=== PATIENT | male | born 1940 | race Caucasian/White ===

== ENCOUNTER 2021-08-09 04:26 | Inpatient (IN) | payer OTHER, BC ==
[2021-08-06 08:54] VITALS: BMI 31.8
[2021-08-09] MEDS ORDERED: BUPIVACAINE HCL/PF 0.25% (2.5MG/ML) 10 ML VIAL ONE (07:14)
[2021-08-09] MEDS ORDERED: HEPARIN NA (PORCINE) 5,000 UNITS/ML 1ML VIAL ONE (07:14)
[2021-08-09] MEDS ORDERED: BUPIVACAINE LIPOSOME/PF (EXPAREL) 266 MG/20 ML VIAL ONE ×2 (07:14→09:56)
[2021-08-09] MEDS ORDERED: THROMBIN (BOVINE) 5,000 UNIT VIAL TP ONE ×5 (07:14→15:06)
[2021-08-09] MEDS ORDERED: GENTAMICIN SO4 80 MG/2 ML VIAL ONE (07:42)
[2021-08-09] MEDS ORDERED: MIDAZOLAM HCL 2 MG/2 ML SINGLE DOSE VIAL ONE (08:08)
[2021-08-09] MEDS ORDERED: fentaNYL CITRATE 250 MCG/5 ML VIAL ONE (08:08)
[2021-08-09] MEDS ORDERED: ROCURONIUM BROMIDE 50 MG/5 ML SYRINGE ONE ×3 (08:08→12:15)
[2021-08-09] MEDS ORDERED: PROPOFOL 20 ML ONE ×2 (08:08)
[2021-08-09] MEDS ORDERED: GENTAMICIN SO4 80 MG/2 ML VIAL IVPB ONE ×2 (08:18→09:40)
[2021-08-09] MEDS ORDERED: HYDROGEN PEROXIDE 473 ML PO ONE ×2 (08:19→10:00)
[2021-08-09] MEDS ORDERED: ceFAZolin 2 GRAM PREMIX BAG IVPB ONE (09:00)
[2021-08-09] MEDS ORDERED: VANCOMYCIN 1 GM in D5W (PRE-DOCKED) 1,000 MG/250 ML IVPB ONE (09:10)
[2021-08-09] MEDS ORDERED: BUPIVACAINE HCL/PF 0.5% (5MG/ML) 10 ML VIAL ONE (09:57)
[2021-08-09] MEDS ORDERED: TRANEXAMIC ACID 1000 MG/10 ML VIAL ONE (11:17)
[2021-08-09] MEDS ORDERED: ceFAZolin SODIUM 1 GM VIAL ONE ×2 (11:17→13:06)
[2021-08-09] MEDS ORDERED: LIDOCAINE HCL 2% JELLY (5 ML/TUBE) ONE (11:17)
[2021-08-09] MEDS ORDERED: DEXAMETHASONE SOD PHOSPHATE 4 MG/1 ML VIAL ONE (11:17)
[2021-08-09] MEDS ORDERED: VANCOMYCIN 1,000 MG VIAL (RESTRICTED TO ID ONLY) ONE (11:17)
[2021-08-09] MEDS ORDERED: LIDOCAINE HCL/PF 2% SDV 5ML VIAL ONE (11:17)
[2021-08-09] MEDS ORDERED: DESFLURANE GAS 240 ML BOTTLE IH ONE (12:55)
[2021-08-09] MEDS ORDERED: oxyCODONE HCL 5 MG TABLET PO PRN (13:03)
[2021-08-09] MEDS ORDERED: HYDROmorphone HCl 2 MG/ML VIAL SQ PRN (13:03)
[2021-08-09] MEDS ORDERED: ONDANSETRON 4 MG/2 ML VIAL IVPUSH PRN ×2 (13:03→14:42)
[2021-08-09] MEDS ORDERED: diazePAM CARPU-JECT 10 MG/2 ML DISP.SYRIN IVPUSH PRN (13:03)
[2021-08-09] MEDS ORDERED: BUPIVACAINE HCL/PF 0.5% (5MG/ML) 10 ML VIAL IJ ONE (14:12)
[2021-08-09] MEDS ORDERED: BUPIVACAINE LIPOSOME/PF (EXPAREL) 266 MG/20 ML VIAL NR ONE (14:12)
[2021-08-09] MEDS ORDERED: LACTATED RINGERS SOLUTION 1,000 ML IV SCH (14:45)
[2021-08-09] MEDS ORDERED: ACETAMINOPHEN INJECTION 100 ML IVPB ONE (15:00)
[2021-08-09] MEDS: LACTATED RINGERS SOLUTION 1,000 ML IV SCH (16:24)
[2021-08-09] MEDS ORDERED: metFORMIN HCL 500 MG TABLET (FP) PO SCH (16:30)
[2021-08-09] MEDS: oxyCODONE HCL 5 MG TABLET PO PRN ×2 (18:57→22:53)
[2021-08-09] MEDS: CEFAZOLIN 2 GM in DEXTROSE 5%-WATER - 100 ML IVPB SCH (19:30)
[2021-08-09] MEDS: ATORVASTATIN CA 20 MG TABLET (FP) PO SCH (21:11)
[2021-08-09] MEDS: INSULIN SLIDING SCALE (NOVOLOG) 1 VIAL SQ SCH (21:15)
[2021-08-10] MEDS: CEFAZOLIN 2 GM in DEXTROSE 5%-WATER - 100 ML IVPB SCH ×2 (00:44→10:23)
[2021-08-10] MEDS: ACETAMINOPHEN 1000 MG/100 ML VIAL IVPB PRN ×2 (00:44→20:48)
[2021-08-10] MEDS: oxyCODONE HCL 5 MG TABLET PO PRN (05:50)
[2021-08-10] MEDS: INSULIN SLIDING SCALE (NOVOLOG) 1 VIAL SQ SCH ×4 (06:06→21:35)
[2021-08-10 09:56] LABS: HEMATOCRIT 27.3 % (35.4-49); HEMOGLOBIN 9.3 GM/dL (11.7-16.9); MCH 29.5 pg (25.7-33.7); MCHC 33.9 g/dl (32.0-35.9); MEAN CELL VOLUME 86.8 fl (80-96); PLATELET COUNT 123 10^3/uL (134-434); RBC 3.15 M/mm3 (4.00-5.60); RDW 15.2 % (11.9-15.9); WHITE BLOOD COUNT 10.9 K/mm3 (4.0-10.0)
[2021-08-10] MEDS ORDERED: KETOROLAC TROMETHAMINE 30 MG/1 ML VIAL IVPUSH ONE (10:00)
[2021-08-10] MEDS: VALSARTAN 160 MG TABLET PO SCH (10:23)
[2021-08-10] MEDS: amLODIPine BESYLATE 10 MG TABLET (FP) PO SCH (10:24)
[2021-08-10 11:07] LABS: BLOOD UREA NITROGEN 29.2 mg/dL (7-18)
[2021-08-10 11:11] LABS: CREATININE 1.5 mg/dL (0.55-1.3)
[2021-08-10] MEDS: HYDROmorphone *PCA* 10MG/50ML DISP.SYRIN PCA SCH (15:50)
[2021-08-10] MEDS: LACTATED RINGERS SOLUTION 1,000 ML IV SCH (15:51)
[2021-08-11] MEDS: LACTATED RINGERS SOLUTION 1,000 ML IV SCH (03:46)
[2021-08-11] MEDS: ACETAMINOPHEN 1000 MG/100 ML VIAL IVPB PRN (05:15)
[2021-08-11] MEDS: INSULIN SLIDING SCALE (NOVOLOG) 1 VIAL SQ SCH ×4 (06:03→22:06)
[2021-08-11 08:43] LABS: HEMATOCRIT 27.1 % (35.4-49); MCH 28.9 pg (25.7-33.7); MCHC 33.3 g/dl (32.0-35.9); MEAN CELL VOLUME 86.9 fl (80-96); MEAN PLT VOLUME 10.1 fl (7.5-11.1); PLATELET COUNT 111 10^3/uL (134-434); RBC 3.11 M/mm3 (4.00-5.60); RDW 15.5 % (11.9-15.9); WHITE BLOOD COUNT 10.2 K/mm3 (4.0-10.0)
[2021-08-11 09:22] LABS: ALBUMIN 2.5 g/dl (3.4-5.0); BLOOD UREA NITROGEN 18.9 mg/dL (7-18); CALCIUM 8.1 mg/dL (8.5-10.1); MAGNESIUM 2.2 mg/dL (1.8-2.4)
[2021-08-11 09:23] LABS: CREATININE 1.1 mg/dL (0.55-1.3)
[2021-08-11 09:24] LABS: PHOSPHOROUS 2.4 mg/dL (2.5-4.9)
[2021-08-11 09:25] LABS: BILIRUBIN,TOTAL 0.7 mg/dL (0.2-1); TOT PROT 5.3 g/dl (6.4-8.2)
[2021-08-11] MEDS ORDERED: TRIAMTERENE AND HCTZ - 37.5 MG/25 MG CAPSULE PO SCH (10:00)
[2021-08-11] MEDS: VALSARTAN 160 MG TABLET PO SCH (10:12)
[2021-08-11] MEDS: amLODIPine BESYLATE 10 MG TABLET (FP) PO SCH (10:12)
[2021-08-11] MEDS ORDERED: ACETAMINOPHEN 325 MG TABLET (FP) PO PRN (14:14)
[2021-08-11] MEDS: ATORVASTATIN CA 20 MG TABLET (FP) PO SCH (22:08)
[2021-08-12] MEDS ORDERED: DOCUSATE SODIUM 100 MG CAPSULE (FP) PO ONE ×3 (02:58→06:45)
[2021-08-12] MEDS: LACTATED RINGERS SOLUTION 1,000 ML IV SCH ×3 (04:49→21:34)
[2021-08-12] MEDS: INSULIN SLIDING SCALE (NOVOLOG) 1 VIAL SQ SCH ×4 (06:41→21:36)
[2021-08-12 08:23] LABS: HEMOGLOBIN 9.1 GM/dL (11.7-16.9); MCH 29.2 pg (25.7-33.7); MCHC 33.8 g/dl (32.0-35.9); MEAN CELL VOLUME 86.5 fl (80-96); PLATELET COUNT 121 10^3/uL (134-434); RBC 3.13 M/mm3 (4.00-5.60); RDW 15.3 % (11.9-15.9); WHITE BLOOD COUNT 10.7 K/mm3 (4.0-10.0)
[2021-08-12 08:51] LABS: ALBUMIN 2.3 g/dl (3.4-5.0); CALCIUM 8.3 mg/dL (8.5-10.1)
[2021-08-12 08:54] LABS: CREATININE 0.9 mg/dL (0.55-1.3)
[2021-08-12 08:55] LABS: BILIRUBIN,TOTAL 0.8 mg/dL (0.2-1)
[2021-08-12 08:56] LABS: TOT PROT 5.3 g/dl (6.4-8.2)
[2021-08-12] MEDS: VALSARTAN 160 MG TABLET PO SCH (09:35)
[2021-08-12] MEDS: amLODIPine BESYLATE 10 MG TABLET (FP) PO SCH (09:35)
[2021-08-12] MEDS ORDERED: INSULIN (NOVOLOG) ASPART 100 UNITS/ML 10ML VIAL ONE (11:19)
[2021-08-12] MEDS ORDERED: PCA PUMP NR ONE (12:38)
[2021-08-12] MEDS: HYDROmorphone *PCA* 10MG/50ML DISP.SYRIN PCA SCH (12:42)
[2021-08-12] MEDS: DOCUSATE SODIUM 100 MG CAPSULE (FP) PO SCH (21:36)
[2021-08-12] MEDS ORDERED: SENNOSIDES 8.6MG TABLET (FP) PO SCH (22:00)
[2021-08-13] MEDS: LACTATED RINGERS SOLUTION 1,000 ML IV SCH ×2 (05:39→14:42)
[2021-08-13] MEDS: INSULIN SLIDING SCALE (NOVOLOG) 1 VIAL SQ SCH ×3 (06:38→16:20)
[2021-08-13] MEDS ORDERED: ACETAMINOPHEN 500 MG TABLET (FP) PO ONE (08:09)
[2021-08-13] MEDS ORDERED: oxyCODONE HCL 5 MG TABLET PO PRN (08:32)
[2021-08-13] MEDS ORDERED: MAGNESIUM HYDROX 2400MG/30ML ORAL SUSPENSION 30 ML CUP PO PRN (08:35)
[2021-08-13] MEDS ORDERED: PCA PUMP NR ONE (08:39)
[2021-08-13 09:14] LABS: HEMATOCRIT 29.3 % (35.4-49); MCH 29.3 pg (25.7-33.7); MCHC 34.1 g/dl (32.0-35.9); MEAN CELL VOLUME 85.8 fl (80-96); MEAN PLT VOLUME 9.7 fl (7.5-11.1); PLATELET COUNT 195 10^3/uL (134-434); RBC 3.41 M/mm3 (4.00-5.60)
[2021-08-13 09:21] LABS: ALBUMIN 2.5 g/dl (3.4-5.0); BLOOD UREA NITROGEN 12.7 mg/dL (7-18); CALCIUM 8.1 mg/dL (8.5-10.1)
[2021-08-13 09:24] LABS: CREATININE 0.9 mg/dL (0.55-1.3)
[2021-08-13 09:26] LABS: BILIRUBIN,TOTAL 0.7 mg/dL (0.2-1)
[2021-08-13] MEDS: DOCUSATE SODIUM 100 MG CAPSULE (FP) PO SCH (09:33)
[2021-08-13] MEDS: oxyCODONE HCL 5 MG TABLET PO PRN ×2 (09:33→19:32)
[2021-08-13] MEDS: amLODIPine BESYLATE 10 MG TABLET (FP) PO SCH (09:34)
[2021-08-13] MEDS: VALSARTAN 160 MG TABLET PO SCH (10:02)
[2021-08-13 11:06] VITALS: PULSE 106
[2021-08-13 14:11] VITALS: BP 126/74; TEMP 97.8
[2021-08-13] MEDS ORDERED: ACETAMINOPHEN 500 MG TABLET (FP) PO SCH (17:00)
== END 2021-08-13 21:13 | DRG 454 ==
LOC: JASUSAT 04:26 → EDSTATUS 12:30 → J2C 13:03 → J6S 17:35
PROVIDERS: ADMIT Orthopaedic Surgery Orthopaedic Surgery of the Spine
PROC: 0SG1071 Fusion of 2 or more Lumbar Vertebral Joints with Autologous Tissue Substitute, Posterior Approach, Posterior Column, Open Approach (ICD-10-PCS; 2021-08-09)
PROC: 0SB20ZZ Excision of Lumbar Vertebral Disc, Open Approach (ICD-10-PCS; 2021-08-09)
PROC: 0SG30AJ Fusion of Lumbosacral Joint with Interbody Fusion Device, Posterior Approach, Anterior Column, Open Approach (ICD-10-PCS; 2021-08-09)
PROC: 0SG3071 Fusion of Lumbosacral Joint with Autologous Tissue Substitute, Posterior Approach, Posterior Column, Open Approach (ICD-10-PCS; 2021-08-09)
PROC: 01NB0ZZ Release Lumbar Nerve, Open Approach (ICD-10-PCS; 2021-08-09)
PROC: 01NR0ZZ Release Sacral Nerve, Open Approach (ICD-10-PCS; 2021-08-09)
PROC: 0SB40ZZ Excision of Lumbosacral Disc, Open Approach (ICD-10-PCS; 2021-08-09)
PROC: 07DR3ZX Extraction of Iliac Bone Marrow, Percutaneous Approach, Diagnostic (ICD-10-PCS; 2021-08-09)
PROC: 0SG10AJ Fusion of 2 or more Lumbar Vertebral Joints with Interbody Fusion Device, Posterior Approach, Anterior Column, Open Approach (ICD-10-PCS; principal; 2021-08-09 08:00)
DX: M47.26 Other spondylosis with radiculopathy, lumbar region (principal); D62 Acute posthemorrhagic anemia; M51.17 Intervertebral disc disorders with radiculopathy, lumbosacral region; M48.062 Spinal stenosis, lumbar region with neurogenic claudication; M47.27 Other spondylosis with radiculopathy, lumbosacral region; M48.07 Spinal stenosis, lumbosacral region; E78.5 Hyperlipidemia, unspecified; I10 Essential (primary) hypertension; E66.9 Obesity, unspecified; Z68.31 Body mass index [BMI] 31.0-31.9, adult; M77.8 Other enthesopathies, not elsewhere classified; M10.9 Gout, unspecified
CPT/HCPCS: 36415; 72131-TC; 76000-TC-FY; 80048; 80053; 82962; 83036; 83735; 84100; 85027; 86850; 86900; 86901; 94010; 94760; 97116-GP; 97162-GP; J0131; J1644